=== PATIENT | female | born 1960 | race Caucasian/White ===

== ENCOUNTER 2018-05-01 08:14 | Day surgery (SDC) | payer MEDICARE, OTHER, MEDICAID ==
[2018-05-01] MEDS ORDERED: LIDOCAINE 2% (SDV) 5 ML INJ (09:43)
[2018-05-01] MEDS ORDERED: FENTAnyl 50 MCG/ML VIAL (09:43)
[2018-05-01] MEDS ORDERED: PROPOFOL 40 ML (09:43)
== END 2018-05-01 14:53 | disposition home or self-care (01) ==
LOC: GIL 08:14
DX: R19.4 Change in bowel habit (principal); K29.50 Unspecified chronic gastritis without bleeding; K64.8 Other hemorrhoids; K44.9 Diaphragmatic hernia without obstruction or gangrene; K21.9 Gastro-esophageal reflux disease without esophagitis; I10 Essential (primary) hypertension; E11.9 Type 2 diabetes mellitus without complications; E78.5 Hyperlipidemia, unspecified
CPT/HCPCS: 43239; 88305; 88312